=== PATIENT | female | born 1965 ===

== ENCOUNTER 2017-06-26 03:25 | Emergency (ER) | payer SELFPAY ==
[2017-06-26] MEDS ORDERED: HYDROcodone/Acetaminophen 5/325 mg Tablet ONE (03:35)
[2017-06-26] MEDS ORDERED: Ibuprofen 800 MG TAB ONE (03:35)
--- NOTE | 2017-06-26 07:37 | RAD ---
FRONTAL RADIOGRAPH CHEST: DATE: 06/26/17. COMPARISON: None. HISTORY: Shoulder pain, arm pain, chest pain, injury. FINDINGS: There is no pneumothorax or pleural fluid and no focal consolidation or alveolar edema. Heart and me diastinal contours unremarkable. IMPRESSION: No acute findings. POS: [facility]
--- NOTE | 2017-06-26 07:39 | RAD ---
THREE VIEWS OF THE RIGHT SHOULDER: DATE: 06/26/17. COMPARISON: None. HISTORY: Right shoulder injury, trauma, pain. FINDINGS: There is mild right AC joint space narrowing with inferior osteophyte formation. No widening of the coracoclavicular interspace. No displaced fracture or dislocation seen. IMPRESSION: No acute findings. POS: [facility]
== END 2017-06-26 05:25 | disposition home or self-care (01) ==
LOC: ERS 03:25
DX: M25.511 Pain in right shoulder (principal); M54.9 Dorsalgia, unspecified
CPT/HCPCS: 71045